=== PATIENT | male | born 1985 ===

== ENCOUNTER 2018-01-25 11:02 | Emergency (ER) | payer OTHER ==
[2018-01-25 11:30] VITALS: BP 124/77; PULSE 76; RESP 18; TEMP 98.6; O2SAT 98
[2018-01-25] MEDS ORDERED: Tdap Vaccine 0.5 ml Vial (10-64 yrs) IM ONE ×2 (12:42→12:50)
--- NOTE | 2018-01-25 12:48 | ED PDOC ---
HPI: Wound Care - HPI Time Seen by Provider: 01/25/18 12:25 Chief Complaint (Nursing): Needle Stick Chief Complaint (Provider): Needle Stick History Per: Patient Exam Limitations: no limitations Onset/Duration Of Symptoms: Mins Current Symptoms Are (Timing): Still Present Location Of Injury: Left: Hand (left distal thumb) Additional Complaint(s): 32 year old male presents to the ED with complaints of a needle stick injury to the left distal thumb occurring prior to arrival. 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 Patient reports he is unaware of the owners name or medical history and states he immediately expressed blood out of puncture site. Patient states he washed wound with water and soap. Patient is right hand dominant. Otherwise, patient offers no complaints except wound evaluation. PMD: None Past Medical History Reviewed: Historical Data, Nursing Documentation, Vital Signs Vital Signs: Last Vital Signs Temp 98.6 F 01/25/18 11:25 Pulse 76 01/25/18 11:25 Resp 18 01/25/18 11:25 BP 124/77 01/25/18 11:25 Pulse Ox 98 01/25/18 11:25 - Medical History PMH: No Chronic Diseases - Surgical History Surgical History: No Surg Hx - Family History Family History: States: Unknown Family Hx - Social History Current smoker - smoking cessation education provided: No Alcohol: Occasional Drugs: Denies - Immunization History Hx Tetanus Toxoid Vaccination: No (Not up to date) - Allergies Allergies/Adverse Reactions: Allergies Allergy/AdvReac Type Severity Reaction Status Date / Time No Known Allergies Allergy Verified 01/25/18 11:24 Review of Systems ROS Statement: Except As Marked, All Systems Reviewed And Found Negative Musculoskeletal: Positive for: Other. Negative for: Hand Pain (left distal thumb) Physical Exam - Reviewed Nursing Documentation Reviewed: Yes Vital Signs Reviewed: Yes - Physical Exam Comments: GENERAL APPEARANCE: Patient is awake, alert, oriented x 3, in no acute distress. NECK: Supple, FROM ENT: Mucus membranes moist. CHEST AND RESPIRATORY: breath sounds equal bilaterally (-) rhonchi (-) rales (- ) wheezing HEART AND CARDIOVASCULAR: (-) irregularity; (-) murmur, (-) gallop SKIN: Warm, dry; (-) cyanosis. L THUMB: No puncture wound visualized at this time. (-) Tenderness, (-) swelling, (-) ecchymosis (-) deformity (-) distal neurovascular deficit, (-) erythema. (-) drainage (-) active bleeding. (+) sensation intact, cap refill < 2 seconds. - Laboratory Results Result Diagrams: 01/25/18 13:08 01/25/18 13:08 - ECG O2 Sat by Pulse Oximetry: 98 (RA) Pulse Ox Interpretation: Normal Medical Decision Making Medical Decision Making: Clinical Impression: Needle Stick Injury Plan: -- Accucheck -- CMP -- Hepatitis B Core -- Hepatitis B Surface -- Hepatitis B Antibody -- CBC with differential -- Rapid HIV -- Rapid Plasma Reagin Stat -- Tetanus IM Prophylaxis regimen discussed with patient. Transmission risks discussed with patients. Risks and benefits of PEP reviewed in detail. Patient denies prophylaxis regimen at this time and states he would rather follow up for repeat blood work. Accucheck: 91 CBC, CMP, and Rapid HIV reviewed and discussed with patient. Patient advised to follow up remainder of blood work in 48 hours. On exam, neck is supple, lungs CTA, cardiac RRR, abdomen is soft and non-tender , neuro exam shows no focal findings. VSS. Stable for discharge. Advised to follow up with primary care physician /clinic in 6 months for repeat labs. Return to the emergency room at any time for any new or worsening symptoms. Patient states he fully agrees with and understands discharge instructions. States that he agrees with the plan and disposition. Verbalized and repeated discharge instructions and plan. I have given the patient opportunity to ask any additional questions. Scribe Attestation: Documented by Sunni Sherman, acting as a scribe for Ana Davila PA-C. Provider Scribe Attestation: All medical record entries made by the Scribe were at my direction and personally dictated by me. I have reviewed the chart and agree that the record accurately reflects my personal performance of the history, physical exam, medical decision making, and the department course for this patient. I have also personally directed, reviewed, and agree with the discharge instructions and disposition. Disposition - Clinical Impression Clinical Impression: Needle stick injury - Patient ED Disposition Is Patient to be Admitted: No Counseled Patient/Family Regarding: Diagnosis, Need For Followup - Disposition Referrals: [facility] [Outside] Disposition: Routine/Home Disposition Time: 14:02 Condition: FAIR Additional Instructions: REPEAT BLOODWORK IN 6 MONTHS. Instructions: Blood or Body Fluid Exposure Forms: [employer] (Arabic) Print Language: GREENLANDIC - POA Present On Arrival: None Results - Lab Results Lab Results: 01/25/18 01/25/18 01/25/18 13:08 13:08 13:08 WBC 12.4 H RBC 5.12 Hgb 15.6 Hct 46.4 MCV 90.6 MCH 30.5 MCHC 33.7 RDW 12.8 Plt Count 211 MPV 10.3 Neut % (Auto) 86.8 H Lymph % (Auto) 8.9 L [place] % (Auto) 3.8 Eos % (Auto) 0.4 Baso % (Auto) 0.1 Neut # (Auto) 10.8 H Lymph # (Auto) 1.1 [place] # (Auto) 0.5 Eos # (Auto) 0.1 Baso # (Auto) 0.0 Neutrophils % (Manual) Pending Lymphocytes % (Manual) Pending Monocytes % (Manual) Pending Platelet Estimate Pending Sodium 144 Potassium 4.3 Chloride 104 Carbon Dioxide 25 Anion Gap 19 BUN 15 Creatinine 0.9 Est GFR ( Amer) > 60 Est GFR (Non-Af Amer) > 60 Random Glucose 103 Calcium 9.6 Total Bilirubin 0.6 AST 28 ALT 51 Alkaline Phosphatase 62 Total Protein 7.7 Albumin 4.6 Globulin 3.1 Albumin/Globulin Ratio 1.5 HIV-1 Ab Rapid Screen Non reactive
[2018-01-25 13:30] LABS: BASO % 0.1 % (0.0-2.0); EOS # 0.1 K/uL (0.0-0.7); EOS % 0.4 % (0.0-4.0); HEMOGLOBIN 15.6 g/dL (12.0-18.0); LYMPH # 1.1 K/uL (1.0-4.3); LYMPH % 8.9 % (20.0-40.0); MEAN CELL VOLUME 90.6 fl (80.0-94.0); MEAN CORPUSCULAR HEMOGLOBIN 30.5 pg (27.0-31.0); MEAN CORPUSCULAR HGB CONC 33.7 g/dL (33.0-37.0); MEAN PLATELET VOLUME 10.3 fl (7.2-11.7); MONO # 0.5 K/uL (0.0-0.8); MONO % 3.8 % (0.0-10.0); NEUT # 10.8 K/uL (1.8-7.0); NEUT % 86.8 % (50.0-75.0); NRBC % 0.1 % (0.0-0.0); PLATELET COUNT 211 K/uL (130-400); RBC 5.12 Mil/uL (4.40-5.90); RED CELL DISTRIBUTION WIDTH 12.8 % (11.5-14.5); WHITE BLOOD COUNT 12.4 K/uL (4.8-10.8)
[2018-01-25 13:42] LABS: ALB/GLOB RATIO 1.5 (1.0-2.1); ALBUMIN 4.6 g/dL (3.5-5.0); ALT/SGPT 51 U/L (21-72); AST/SGOT 28 U/L (17-59); BLOOD UREA NITROGEN 15 mg/dl (9-20); CALCIUM 9.6 mg/dL (8.4-10.2); GFR AFRICAN-AMERICAN > 60; GFR NON-AFRICAN AMERICAN > 60
[2018-01-25 14:14] LABS: EOSINOPHIL 1 % (0-7); LYMPHOCYTE 8 % (20-50); MONOCYTE 2 % (0-10); NEUTROPHIL 89 % (42-75); PLATELET ESTIMATE NORMAL (NORMAL); TOTAL CELLS COUNTED 100
[2018-01-25 16:49] LABS: HEPATITIS B SURFACE AG Negative (NEGATIVE)
[2018-01-25 16:54] LABS: HEPATITIS B CORE AB NEGATIVE (NEGATIVE)
== END 2018-01-25 14:15 | disposition home or self-care (01) ==
LOC: H.ER 11:02
DX: S61.032A Puncture wound without foreign body of left thumb without damage to nail, initial encounter (principal); W46.0XXA Contact with hypodermic needle, initial encounter; Y99.0 Civilian activity done for income or pay; Z79.4 Long term (current) use of insulin